=== PATIENT | female | born 1955 | race Caucasian/White ===

== ENCOUNTER 2019-02-05 08:54 | Day surgery (SDC) | payer BC ==
[2019-02-05] MEDS ORDERED: LACTATED RINGERS 1,000 ML IV ONE ×2 (09:17→12:00)
--- NOTE | 2019-02-05 10:11 | ANESTHESIA ---
Pre-Anesthesia VS, & Labs - Diagnosis internal hemorrhoids - Procedure internal hemorrhoid banding Vital Signs: Temp Pulse Resp BP Pulse Ox 36.3 C L 66 16 133/65 H 99 02/05/19 09:11 02/05/19 09:11 02/05/19 09:11 02/05/19 09:11 02/05/19 09:11 Height 5 ft 9 in Weight (kg) 75.7 kg - NPO >8 hours - Is Patient ?: No Home Medications and Allergies Home Medications: Ambulatory Orders Lisinopril 1 DAILY 02/05/19 Penicillin V Potassium 1 Q6HR 02/05/19 Lisinopril 1 DAILY 02/05/19 Penicillin V Potassium 1 Q6HR 02/05/19 Allergies/Adverse Reactions: Allergies Allergy/AdvReac Type Severity Reaction Status Date / Time No Known Drug Allergies Allergy Verified 02/05/19 09:18 Anes History & Medical History - Anesthetic History Anesthesia Complications: reports: Post-Operative Nausea/Vomiting - Medical History Cardiovascular: reports: Hypertension Gastrointestinal: reports: Hemorrhoids, Cholelithiasis Smoking Status: Never smoker - Surgical History General: Cholecystectomy, Colonoscopy Eyes Ears Nose Throat (EENT): Other (left parotidectomy) Neurologic: Other (occssional left ulnar symptoms, tingling that always goes away with repostioning. No symptoms with neck extention.) Exam General: Alert Dental: WNL, Other (nothing loose, antibiotics for gum abcess.) Mouth Opening: Greater than 4 Fingerbreadths Mallampati classification: II Respiratory: Lungs clear Cardiovascular: Regular rate, Normal S1, Normal S2 Plan Anesthesia Type: General Consent for Procedure(s) Verified and Reviewed: Yes Code Status: Attempt Resuscitation ASA classification: 2-Mild systemic disease Is this case an emergency?: No
[2019-02-05] MEDS ORDERED: BUPIVACAINE 0.5%-EPI 1:200000 PF 30 ML VIAL ONE (10:37)
[2019-02-05] MEDS ORDERED: LIDOCAINE 1% 50 ML MDV ONE (10:38)
[2019-02-05] MEDS ORDERED: LIDOCAINE OINTMENT 5% 35.44 GM TUBE ONE (11:33)
[2019-02-05] MEDS ORDERED: LIDOCAINE JELLY 2% 5 ML TUBE TOP ONE (11:33)
--- NOTE | 2019-02-05 12:02 | OPERATIVE REPORT ---
Operative Report - General Procedure Date: 02/05/19 Planned Procedure: Examination Under Anesthesia with Hemorrhoid Banding Pre-Op Diagnosis: Bleeding Internal Hemorrhoids Procedure Performed: Examination Under Anesthesia With Hemorrhoid Banding.l Post Op Diagnosis: Bleeding Internal Hemorrhoids - Procedure Note Primary Surgeon: Damien Anesthesia Provider: CATHERINE Aleman Anesthesia Technique: General LMA Estimated Blood Loss (mL): 1 Findings: 2 columns of Grade 3 internal hemorrhoids 1 column Grade 2 internal hemorrhoid Complications: None apparent - Other Other Information/Narrative: After obtaining informed consent, the patient is brought to the operating room and placed in the supine position on the examination table. Following successful induction of monitored anesthesia care with sedation, the legs were placed in Steven stirrups and the patient assumed the lithotomy position. A timeout was held per [facility] protocol. The lubricated retractor was placed in the anal cavity. I immediately visualiz ed 3 columns of abnormal hemorrhoid tissue. At 10:00 and 2:00, the hemorrhoids were quite large and prolapsing. 2 bands were applied to each of these columns. At 6:00, the hemorrhoid complex was only grade 2 in nature. A single band was applied to this column. The wound was checked for hemostasis. There was a minimal amount of ooze present. A Gelfoam and lidocaine ointment pack was applied.All sponge, needle, and instrument counts were correct at the conclusion of the case. The patient was allowed to awake from anesthesia without difficulty and taken to the postanesthesia care unit in good condition.
[2019-02-05] MEDS ORDERED: ONDANSETRON 4 MG/2 ML VIAL IVP PRN (12:07)
[2019-02-05] MEDS ORDERED: HYDROcod/ACETAM 5/325 MG TABLET PO PRN (12:07)
[2019-02-05 12:44] VITALS: BP 135/55
[2019-02-05] MEDS ORDERED: HYDROcod/ACETAM 5/325 MG TABLET ONE (12:55)
== END 2019-02-05 08:55 | disposition home or self-care (01) ==
LOC: SDS 08:54
PROVIDERS: ATTEND Surgery
PROC: 06LY0CC Occlusion of Hemorrhoidal Plexus with Extraluminal Device, Open Approach (ICD-10-PCS; principal; 2019-02-05 10:15)
DX: K64.2 Third degree hemorrhoids (principal); I10 Essential (primary) hypertension
CPT/HCPCS: 46221; A9270; J3490; J7120